=== PATIENT | female | born 1955 | race Caucasian/White ===

== ENCOUNTER 2018-10-07 14:36 | Emergency (ER) | payer OTHER ==
[~2018-10-07] VITALS: Ht 157.5 cm; Wt 77.1 kg
[~2018-10-07 14:36] MED LIST: ATOR10; BUPR150ER; CLARITIN10 MG; LOSARTAN POTAS100 MG; MELO7.5; MIRT30; VENL150ER; VICODIN 5-3001 EACH PO
[2018-10-07 16:47] LABS: BASOPHILS ABSOLUTE AUTO 0.07 K/mm3 (0.00-0.23); BASOPHILS PERCENT AUTO 1 % (0-2); EOSINOPHILS ABSOLUTE AUTO 0.16 K/mm3 (0.00-0.68); EOSINOPHILS PERCENT AUTO 2 % (0-6); Hematocrit 45.4 % (33.0-51.0); Hemoglobin 15.3 g/dL (11.5-16.0); IMMATURE GRAN ABSOLUTE AUTO 0.03 K/mm3 (0.00-0.10); IMMATURE GRAN PERCENT AUTO 0 % (0-1); LYMPHOCYTES ABSOLUTE AUTO 2.53 K/mm3 (0.84-5.20); LYMPHOCYTES PERCENT AUTO 27 % (21-46); MONOCYTES ABSOLUTE AUTO 0.53 K/mm3 (0.16-1.47); MONOCYTES PERCENT AUTO 6 % (4-13); Mean Corpuscular HGB 30.4 pg (26.0-34.0); Mean Corpuscular HGB Conc 33.7 g/dL (31.5-36.5); Mean Corpuscular Volume 90 fL (80-100); Mean Platelet Volume 8.9 fL (9.1-12.4); NEUTROPHILS ABSOLUTE AUTO 5.96 K/mm3 (1.96-9.15); NEUTROPHILS PERCENT AUTO 64 % (41-73); Platelet Count 421 K/mm3 (150-400); RDW Coefficient Variation 13.4 % (11.7-14.2); RDW Standard Deviation 43.8 fL (35.1-46.3); Red Blood Cell Count 5.03 M/mm3 (3.80-5.20); White Blood Cell Count 9.28 K/mm3 (4.00-11.30)
[2018-10-07 17:11] LABS: Alanine Aminotransfer (ALT/SGP 57 U/L (12-78); Albumin, Blood 3.8 g/dL (3.4-5.0); Alk Phos 151 U/L (50-136); Anion Gap 7 mmol/L (6-16); Aspartate Aminotrans (AST/SGOT 33 U/L (12-37); Bilirubin, Total 0.4 mg/dL (0.1-1.0); Blood Urea Nitrogen 14 mg/dL (8-24); Bun/Creatinine Ratio 16.1 (12.0-20.0); CO2, Blood 27 mmol/L (21-32); Calcium, Blood 9.1 mg/dL (8.5-10.1); Chloride, Blood 104 mmol/L (98-108); Creatinine, Blood 0.87 mg/dL (0.40-1.00); Globulin, Blood 3.9 g/dL (2.2-4.0); Glomerular Filtration Rate >60 (60-); Glucose, Blood 97 mg/dL (70-99); Sodium, Blood 138 mmol/L (136-145); Total Protein, Blood 7.7 g/dL (6.4-8.2); Troponin I <0.015 ng/mL (0.000-0.040)
[2018-10-07] MEDS ORDERED: IBUP600 PO (18:25)
[2018-10-07] MEDS ORDERED: CYCL10 PO (18:25)
== END 2018-10-07 18:43 | disposition home or self-care (01) ==
LOC: ER 14:36
PROVIDERS: Physician Assistant
DX: R07.81 Pleurodynia (principal); Z88.0 Allergy status to penicillin; Z88.2 Allergy status to sulfonamides; Z79.899 Other long term (current) drug therapy; I10 Essential (primary) hypertension; F17.200 Nicotine dependence, unspecified, uncomplicated
CPT/HCPCS: 36415; 71046; 80053; 84484; 85025; 85379; 93005; 93010; 99284-25

== ENCOUNTER 2019-04-15 15:30 | Inpatient (IN) | payer MEDICARE, OTHER ==
[~2019-04-15] VITALS: Ht 160 cm; Wt 80.5 kg
[~2019-04-15 15:30] MED LIST changes: -ATOR10; -BUPR150ER; +CYCL10 PO; +IBUP600 PO; -LOSARTAN POTAS100 MG; -MELO7.5; -MIRT30; -VENL150ER
[2019-04-15] MEDS ORDERED: MIRT30 PO ×2 (15:59→16:44)
[2019-04-15 16:05] LABS: BASOPHILS ABSOLUTE AUTO 0.05 K/mm3 (0.00-0.23); BASOPHILS PERCENT AUTO 1 % (0-2); EOSINOPHILS ABSOLUTE AUTO 0.13 K/mm3 (0.00-0.68); EOSINOPHILS PERCENT AUTO 1 % (0-6); Hemoglobin 14.5 g/dL (11.5-16.0); IMMATURE GRAN ABSOLUTE AUTO 0.06 K/mm3 (0.00-0.10); IMMATURE GRAN PERCENT AUTO 1 % (0-1); LYMPHOCYTES ABSOLUTE AUTO 2.85 K/mm3 (0.84-5.20); LYMPHOCYTES PERCENT AUTO 30 % (21-46); MONOCYTES ABSOLUTE AUTO 0.48 K/mm3 (0.16-1.47); MONOCYTES PERCENT AUTO 5 % (4-13); Mean Corpuscular HGB 31.3 pg (26.0-34.0); Mean Corpuscular HGB Conc 33.7 g/dL (31.5-36.5); Mean Corpuscular Volume 93 fL (80-100); NEUTROPHILS ABSOLUTE AUTO 6.07 K/mm3 (1.96-9.15); NEUTROPHILS PERCENT AUTO 63 % (41-73); Platelet Count 460 K/mm3 (150-400); RDW Coefficient Variation 12.9 % (11.7-14.2); RDW Standard Deviation 43.8 fL (35.1-46.3); Red Blood Cell Count 4.64 M/mm3 (3.80-5.20); White Blood Cell Count 9.64 K/mm3 (4.00-11.30)
[2019-04-15 16:06] LABS: Bicarbonate Venous 26.3 mmol/L (24.0-30.0); PCO2 Venous 54.3 mmHg (38-42); PO2 Venous 46.9 mmHg (38-42); pH Blood Venous 7.35 (7.34-7.37)
[2019-04-15 16:19] LABS: Source, Urine Catheter
[2019-04-15 16:26] LABS: Bilirubin, Urine Neg (Neg); Blood, Urine Neg (Neg); Glucose Qualitative, Urine Neg (Neg); Ketones, Urine Neg (Neg); Leukocyte Esterase, Urine 1+ (Neg); Nitrite, Urine Neg (Neg); Protein, Urine Neg (Neg); Urobilinogen, Urine NORM (Normal)
[2019-04-15 16:41] LABS: Appearance, Urine Clear (Clear); Color, Urine Yellow (P-Yellow)
[2019-04-15 16:42] LABS: Alanine Aminotransfer (ALT/SGP 39 U/L (12-78); Albumin, Blood 4.1 g/dL (3.4-5.0); Albumin/Globulin Ratio 1.2 (0.8-1.8); Alk Phos 138 U/L (50-136); Anion Gap 4 mmol/L (6-16); Aspartate Aminotrans (AST/SGOT 22 U/L (12-37); Bilirubin, Total 0.6 mg/dL (0.1-1.0); Blood Urea Nitrogen 12 mg/dL (8-24); Bun/Creatinine Ratio 14.4 (12.0-20.0); CO2, Blood 31 mmol/L (21-32); Calcium, Blood 9.2 mg/dL (8.5-10.1); Chloride, Blood 107 mmol/L (98-108); Creatinine, Blood 0.83 mg/dL (0.40-1.00); Ethanol (Alcohol), Blood, Med <3 mg/dL; Globulin, Blood 3.4 g/dL (2.2-4.0); Glomerular Filtration Rate >60 (60-); Glucose, Blood 122 mg/dL (70-99); Potassium, Blood 2.5 mmol/L (3.5-5.5); Sodium, Blood 142 mmol/L (136-145); Total Protein, Blood 7.5 g/dL (6.4-8.2)
[2019-04-15] MEDS ORDERED: PANTOPRAZOLE SO40 M1 PO (16:42)
[2019-04-15 16:43] LABS: Bacteria Few /hpf; Hyaline Casts 0-2 /lpf (0-2); Red Blood Cells, Urine 0-2 /hpf (0-2); Squamous Epithelial Cells Few /hpf (Few); U Amphetamine Screen Not Detected; U Barbituate Screen Not Detected; U Benzodiazapine Screen Not Detected; U Buprenorphine Screen Not Detected; U Cannabinoids Screen DETECTED; U Cocaine Screen Not Detected; U Methadone Screen Not Detected; U Methamphetamine Screen Not Detected; U Opiates Screen Not Detected; U Oxycodone Screen Not Detected; U Phencyclidine Screen Not Detected; U Propoxyphene Screen Not Detected; White Blood Cells, Urine 0-2 /hpf (0-5)
[2019-04-15] MEDS ORDERED: Mobic15 MG PO (16:43)
[2019-04-15] MEDS ORDERED: Hydrochloroth12.5 MG PO (16:43)
[2019-04-15] MEDS ORDERED: Lipitor20 MG PO (16:43)
[2019-04-15] MEDS ORDERED: LOSARTAN POTAS100 MG PO (16:44)
[2019-04-15] MEDS ORDERED: VENL150ER PO (16:44)
[2019-04-15] MEDS ORDERED: BUPROPION XL150 MG PO (16:45)
[2019-04-15 16:47] LABS: Salicylate 4.9 mg/dL (2.8-20.0)
[2019-04-15 16:50] LABS: Acetaminophen, Random <2.0 ug/mL (10.0-30.0)
[2019-04-15 17:27] LABS: Anion Gap 6 mmol/L (6-16); Blood Urea Nitrogen 13 mg/dL (8-24); CO2, Blood 29 mmol/L (21-32); Chloride, Blood 108 mmol/L (98-108); Creatinine, Blood 0.87 mg/dL (0.40-1.00); Glomerular Filtration Rate >60 (60-); Glucose, Blood 121 mg/dL (70-99); Potassium, Blood 2.5 mmol/L (3.5-5.5); Sodium, Blood 143 mmol/L (136-145)
[2019-04-15 20:07] LABS: Anion Gap 7 mmol/L (6-16); Blood Urea Nitrogen 10 mg/dL (8-24); Bun/Creatinine Ratio 12.9 (12.0-20.0); CO2, Blood 27 mmol/L (21-32); Chloride, Blood 108 mmol/L (98-108); Creatinine, Blood 0.77 mg/dL (0.40-1.00); Glomerular Filtration Rate >60 (60-); Glucose, Blood 90 mg/dL (70-99); Sodium, Blood 142 mmol/L (136-145)
[2019-04-15 20:16] LABS: Calcium, Blood 8.9 mg/dL (8.5-10.1)
[2019-04-15 20:47] LABS: Base Excess Venous 3.9 mmol/L; PCO2 Venous 48.4 mmHg (38-42); PO2 Venous 120 mmHg (38-42); pH Blood Venous 7.39 (7.34-7.37)
--- NOTE | 2019-04-15 22:00 | NUR ---
PT ADMITTED TO ROOM ICU 6 AT 2012 THIS EVENENING. REPORT RECEIVED. PT PRESENTS IN ROOM. VERY TALKATIVE AND HAS SOME DIFFICULTY WITH STAYING WITH CONVERSATION. GOOD HISTORIAN. MAKES VERBAL CONTRACT THAT SHE WILL NOT ATTEMPT TO HARM HERSELF WHILE IN THE HOSPITAL. ALLOWED PT TO VERBALIZE HER CONCERNS AND FRUSTRATIONS. VALIDATED WHERE APPROPRIATE. PT STATES THAT HER IV IN HER RIGHT HAND/WRIST PAINFUL WITH POTASSIUM INFUSION. PT BECOMES VERY ANXIOUS AND BEGINS MOVING RAPIDLY IN BED. GRABS AT IV AND DOES MANAGE TO HAVE CAP COME OFF WHICH CAUSED BLEEDING FROM IV LINE. WAS ABLE TO GET CLEAN CAP ON IV LINE AND FLUSH EASILY. PT MANAGED IN SHORT PERIOD OF TIME TO GET HER LINES VERY TANGLED. ADDRESSED PT ABOUT KEEPING HERSELF CALM, AND FOCUSSED. DID START 18 GAUGE IV IN RIGHT UPPER ARM. POTASSIUM CHANGED TO THIS NEW SITE. NO COMPLAINTS VOICED BY PT WITH THIS. DID INFUSE CALCIUM GLUCONATE TO RIGHT HAND/WRIST SITE. PT HAS NO COMPLAINTS WITH THIS INFUSION. WILL REVIEW CHART AND PLAN OF CARE FOR THIS PT.
--- NOTE | 2019-04-16 00:30 | NUR ---
PT VERY IMPULSIVE ESPECIALLY WHEN NEEDING TO GET OUT OF BED TO VOID. DOES SO WITHOUT REGAURD TO HER IV LINES AND LINES. NEEDED TO GET PT TO FOCUS ON BEING SAFE WITH TRANSFERS. INSTRUCTED PT TO USE CALL LIGHT SYSTEM TO REQUEST ASSIST WITH GETING OUT OF BED TO PROTECT LINES. PT VERBALIZES THAT SHE WILL.
[2019-04-16 02:29] LABS: BASOPHILS ABSOLUTE AUTO 0.05 K/mm3 (0.00-0.23); BASOPHILS PERCENT AUTO 0 % (0-2); EOSINOPHILS ABSOLUTE AUTO 0.01 K/mm3 (0.00-0.68); EOSINOPHILS PERCENT AUTO 0 % (0-6); Hematocrit 36.2 % (33.0-51.0); Hemoglobin 12.3 g/dL (11.5-16.0); IMMATURE GRAN ABSOLUTE AUTO 0.04 K/mm3 (0.00-0.10); IMMATURE GRAN PERCENT AUTO 0 % (0-1); LYMPHOCYTES ABSOLUTE AUTO 1.99 K/mm3 (0.84-5.20); LYMPHOCYTES PERCENT AUTO 17 % (21-46); MONOCYTES ABSOLUTE AUTO 0.41 K/mm3 (0.16-1.47); MONOCYTES PERCENT AUTO 4 % (4-13); Mean Corpuscular HGB 31.1 pg (26.0-34.0); Mean Corpuscular Volume 92 fL (80-100); Mean Platelet Volume 9.1 fL (9.1-12.4); NEUTROPHILS ABSOLUTE AUTO 9.11 K/mm3 (1.96-9.15); NEUTROPHILS PERCENT AUTO 79 % (41-73); Platelet Count 413 K/mm3 (150-400); RDW Coefficient Variation 12.6 % (11.7-14.2); RDW Standard Deviation 42.6 fL (35.1-46.3); Red Blood Cell Count 3.95 M/mm3 (3.80-5.20); White Blood Cell Count 11.61 K/mm3 (4.00-11.30)
[2019-04-16 02:46] LABS: Alanine Aminotransfer (ALT/SGP 29 U/L (12-78); Albumin, Blood 3.4 g/dL (3.4-5.0); Albumin/Globulin Ratio 1.1 (0.8-1.8); Alk Phos 116 U/L (50-136); Anion Gap 6 mmol/L (6-16); Aspartate Aminotrans (AST/SGOT 20 U/L (12-37); Bilirubin, Total 0.5 mg/dL (0.1-1.0); Blood Urea Nitrogen 7 mg/dL (8-24); Bun/Creatinine Ratio 9.3 (12.0-20.0); CO2, Blood 28 mmol/L (21-32); Calcium, Blood 8.6 mg/dL (8.5-10.1); Chloride, Blood 109 mmol/L (98-108); Creatinine, Blood 0.75 mg/dL (0.40-1.00); Globulin, Blood 3.1 g/dL (2.2-4.0); Glomerular Filtration Rate >60 (60-); Glucose, Blood 75 mg/dL (70-99); Magnesium, Blood 1.8 mg/dL (1.6-2.4); Potassium, Blood 3.7 mmol/L (3.5-5.5); Salicylate 4.2 mg/dL (2.8-20.0); Sodium, Blood 143 mmol/L (136-145); Total Protein, Blood 6.5 g/dL (6.4-8.2)
--- NOTE | 2019-04-16 03:51 | NUR ---
PT CONTINUES WITHOUT S/S SELF HARMING BEHAVIORS. HAS BEEN GOOD ABOUT CALLING FOR ASSIST OUT OF BED. PT DOES HAVE COMPLAINT OF HEADACHE AND IS MEDICATED WITH TYLENOL WHICH SHE STATES DID NOT HELP TOO MUCH. WILL CONTINUE TO MONITOR PT.
--- NOTE | 2019-04-16 06:27 | NUR ---
PT HAS REMAINED SAFE FROM HARM THROUGHOUT THE NIGHT. HAS BEEN COMPLIANT ABOUT CALLING FOR ASSIST TO GET OUT OF BED TO VOID. PT REMAINS PLEASANT AND COOPERATIVE WITH CARE. WILL CONTINUE TO MONITOR PT, AND WILL REPORT OFF TO ONCOMING RN.
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
--- NOTE | 2019-04-16 08:50 | NUR ---
DR. YUEN BY TO SEE PT. RECEIVED OK TO MAKE PT MED STATUS, NO TELE.
--- NOTE | 2019-04-16 12:58 | NUR ---
PT CONTINUES TO REST IN BED, GETTIN GUP TO BR TO VOID. CONTINUES TO DENY SI. HAD VISIT FROM [facility]. NO REQUESTS AT THIS TIME.
--- NOTE | 2019-04-16 16:00 | NUR ---
SHIFT SUMMARY: PT HAS BEEN ALERT AND ORIENTED THROUGHOUT THE DAY. SHE CONTINUES TO DENY ANY SUICIDAL IDEATION, ALTHOUGH SHE DOES ADMIT SHE BATTLES WITH DEPRESSION AND HAS FOR A LONG TIME. SHE HAS TALKED TODAY ABOUT HER MOVE TO [place] FROM [place], LIVING AT [facility] AND THE STRESSES OF GETTING SETTLED IN. DR. BARKER WAS IN TO SEE PT AND PT WAS TEARFUL AFTERWARDS. OTHERWISE PT REMAINS ON RA, LUNGS CLEAR. SR, BP HYPERTENSIVE WITH SBP IN THE 160S. NO OTHER CHANGES FROM EARLIER ASSESSMENTS. CONTINUING TO MONITOR.
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
--- NOTE | 2019-04-16 19:40 | NUR ---
REPORT GIVEN TO DARIO HICKS, TO ASSUME CARE OF PT AT THIS TIME
--- NOTE | 2019-04-16 19:50 | NUR ---
ASSUMED CARE RECIEVED REPORT FROM SANTOS HICKS. PT ON A 2MD HOLD AND ON CENTRAL MONITORING. ROOM CLEARED OF POTENTIAL WEPONS. PT ALERT AND ORIENTED X 4; UNDERSTANDS WHY SHE IS ON THE HOLD. PT RECEIVING NS @ 125ML/HR THROUGH RIGHT AC IV. BED LOW AND LOCKED.
--- NOTE | 2019-04-17 05:22 | NUR ---
SHIFT SUMMARY PT ALERT AND ORIENTED X 4, AND SLEPT FOR MAJORITY OF NIGHT. PT HAD TO GET UP OUT OF BED MULTIPLE TIMES THROUGHOUT NIGHT TO VOID. SHE HAS CALLED EVERYTIME BEFORE GETTING UP FIRST. SHE MOVES VERY QUICK, AND ACTS SLIGHTLY IMPULSIVE. SHE DENIES SUICIDAL IDEATION, BUT IS NOT CONTENT WITH HER LIFE AT THE MOMENT. PT VERY CALM ALL NIGHT, ASIDE FROM CRYING ONCE FROM TALKING TO BOYFRIEND ON PHONE. PHONE REMOVED AFTER PHONE CALL, I WAS IN THE ROOM WHILE SHE WAS ON THE PHONE. DISCUSSED HER PLAN OF CARE AND HER POTENTIAL DISCHARGE. PT RECIEVING NS @ 125ML/HR, IV SITE WNL. BED LOW AND LOCKED. CALL LIGHT WITHIN REACH.
--- NOTE | 2019-04-17 07:30 | NUR ---
ASSUMED CARE OF PATIENT; SEE ASSESSMENT CHARTING FOR DETAILS. PATIENT ALERT AND ORIENTED, X4, DENIES ACUTE DISCOMFORT. DENIES SUICIDE IDEATION; WATCHING TV; PLEASANT AND COOPERATIVE. RN INQUIRED WHERE PATIENT WOULD BE STAYING IF SHE IS DISCHARGED HOME TODAY AND SHE STATED SHE AND HER BOYFRIEND WILL BE STAYING HERE, IN [place], AT A MOTEL; EVENTUALLY HOPING TO GET AN APARTMENT. PLANS TO F/U WITH [facility] AN OUTPATIENT ONCE SHE IS DISCHARGED.
--- NOTE | 2019-04-17 10:30 | NUR ---
2 ATTEMPTS, BY RN, TO START NEW IV (PRESENT IV INFILTRATING--WILL D/C). NS RESUMED TO INFUSE AT 125ML/HR.
--- NOTE | 2019-04-17 12:09 | NUR ---
T/C FROM [facility]; TOUCHED BASE RE: PATIENTS' STATUS; THEY WILL SIGN OFF SINCE PATIENT MEDICALLY STABLE; RN TO CONTACT THEM IF ANY ISSUES.
--- NOTE | 2019-04-17 14:30 | NUR ---
TC TO DR. YUEN TO SEE IF IVF CAN BE STOPPED AND IF RN CAN NOT RESTART A NEW IV SITE (ANOTHER INFILTRATE). OKAY GIVEN TO LEAVE IV OUT AND STOP FLUIDS.
--- NOTE | 2019-04-17 14:50 | NUR ---
DR. PHILIPPE (PSYCH) HERE TO RE-EVAL. PATIENT; SEE ORDERS.
--- NOTE | 2019-04-17 15:00 | NUR ---
DR. PHILIPPE CALLED IN REMER[facility] RX TO PATIENTS' PHARMACY; PATIENT HAS ENOUGH OF HER OTHER MEDS. WANTS PATIENT TO F/U WITH PCP AND WITH BEHAVIORAL HEALTH IN A WEEK. DR. YUEN, ARRIVED, AND WILL COMPLETE D/C ORDERS.
--- NOTE | 2019-04-17 16:00 | NUR ---
DISCHARGE INSTRUCTIONS GIVEN TO PATIENT WITH WRITEN AND VERBAL UNDERSTANDING. PATIENT UP FOR BRP AND THEN RN GAVE PATIENT HER BELONGINGS BAG SO PATIENT COULD CHANGE CLOTHES.
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
== END 2019-04-17 16:26 | disposition home or self-care (01) | DRG 917 ==
LOC: ER 15:30 → ICUE 17:32 → ERHOLD 17:32 → ICUE 20:01
PROVIDERS: Emergency Medicine; Nurse Practitioner Acute Care; ADMIT Internal Medicine
DX: T43.021A Poisoning by tetracyclic antidepressants, accidental (unintentional), initial encounter (principal); G92 Toxic encephalopathy; F33.3 Major depressive disorder, recurrent, severe with psychotic symptoms; I10 Essential (primary) hypertension; E87.6 Hypokalemia; T14.91XA Suicide attempt, initial encounter; M19.90 Unspecified osteoarthritis, unspecified site; G25.81 Restless legs syndrome; E78.00 Pure hypercholesterolemia, unspecified; Z88.2 Allergy status to sulfonamides; Z88.0 Allergy status to penicillin; Z79.1 Long term (current) use of non-steroidal anti-inflammatories (NSAID); Z79.899 Other long term (current) drug therapy
CPT/HCPCS: 36415; 51702; 80048; 80053; 81001; 81025; 82803; 83735; 84100; 84443; 85025; 87086; 93005; 93010; 96361-59; 96365-59; 96366-59; 99285-25; A9270; G0480; J0610; J1650; J3480; J7030

== ENCOUNTER 2024-03-16 18:34 | Emergency (ER) | payer MEDICARE, OTHER ==
[~2024-03-16] VITALS: Ht 157.5 cm; Wt 77.1 kg
[~2024-03-16 18:34] MED LIST changes: +BUPROPION XL150 MG PO; +Hydrochloroth12.5 MG PO; +LOSARTAN POTAS100 MG PO; +Lipitor20 MG PO; +MIRT30 PO; +Mobic15 MG PO; +PANTOPRAZOLE SO40 M1 PO; +VENL150ER PO
[2024-03-16 18:36] VITALS: BP 149/80
[2024-03-16 21:38] LABS: BASOPHILS ABSOLUTE AUTO 0.08 K/mm3 (0.00-0.23); BASOPHILS PERCENT AUTO 1 % (0-2); EOSINOPHILS ABSOLUTE AUTO 0.04 K/mm3 (0.00-0.68); EOSINOPHILS PERCENT AUTO 0 % (0-6); Hematocrit 40.3 % (33.0-51.0); Hemoglobin 13.3 g/dL (11.5-16.0); IMMATURE GRAN ABSOLUTE AUTO 0.03 K/mm3 (0.00-0.10); IMMATURE GRAN PERCENT AUTO 0 % (0-1); LYMPHOCYTES ABSOLUTE AUTO 1.71 K/mm3 (0.84-5.20); LYMPHOCYTES PERCENT AUTO 17 % (21-46); MONOCYTES ABSOLUTE AUTO 0.48 K/mm3 (0.16-1.47); MONOCYTES PERCENT AUTO 5 % (4-13); Mean Corpuscular HGB 29.3 pg (26.0-34.0); Mean Corpuscular Volume 89 fL (80-100); Mean Platelet Volume 8.8 fL (9.1-12.4); NEUTROPHILS ABSOLUTE AUTO 7.72 K/mm3 (1.96-9.15); NEUTROPHILS PERCENT AUTO 77 % (41-73); Platelet Count 443 K/mm3 (150-400); RDW Coefficient Variation 14.6 % (11.7-14.2); RDW Standard Deviation 47.2 fL (35.1-46.3); Red Blood Cell Count 4.54 M/mm3 (3.80-5.20); White Blood Cell Count 10.06 K/mm3 (4.00-11.30)
[2024-03-16 22:06] LABS: Albumin, Blood 3.6 g/dL (3.4-5.0); Albumin/Globulin Ratio 1.2 (0.8-1.8); Bilirubin, Total 0.3 mg/dL (0.1-1.0); Calcium, Blood 8.7 mg/dL (8.5-10.1); Creatinine, Blood 0.68 mg/dL (0.40-1.00); Globulin, Blood 2.9 g/dL (2.2-4.0); Potassium, Blood 3.4 mmol/L (3.5-5.5); Thyroid Stimulating Hormone 0.31 uIU/mL (0.360-4.800); Total Protein, Blood 6.5 g/dL (6.4-8.2)
[2024-03-16 22:51] LABS: Source, Urine Clean Catch
[2024-03-16 23:09] LABS: Bilirubin, Urine Neg (Neg); Blood, Urine Neg (Neg); Glucose Qualitative, Urine Neg (Neg); Ketones, Urine 4+ (Neg); Leukocyte Esterase, Urine 1+ (Neg); Nitrite, Urine Neg (Neg); Protein, Urine 2+ (Neg); Urobilinogen, Urine 1+ (Normal)
[2024-03-16 23:16] LABS: Appearance, Urine Hazy (Clear); Color, Urine Yellow (P-Yellow)
[2024-03-16 23:17] LABS: Amorphous Mod (0-Heavy); Bacteria Few /hpf; Red Blood Cells, Urine Not Seen /hpf (0-2); Squamous Epithelial Cells Mod /hpf (Few); White Blood Cells, Urine 0-2 /hpf (0-5)
== END 2024-03-17 00:15 | disposition home or self-care (01) ==
LOC: ER 18:34
PROVIDERS: Emergency Medicine
DX: F15.951 Other stimulant use, unspecified with stimulant-induced psychotic disorder with hallucinations (principal); R44.1 Visual hallucinations; R44.0 Auditory hallucinations; I10 Essential (primary) hypertension; E78.00 Pure hypercholesterolemia, unspecified; Z88.0 Allergy status to penicillin; Z88.2 Allergy status to sulfonamides; Z79.899 Other long term (current) drug therapy
CPT/HCPCS: 80053; 81001; 84443; 85025; 99285